=== PATIENT | female | born 1980 | race African-American/Black ===

== ENCOUNTER → 2016-09-03 | Emergency (ER) | payer OTHER ==
[~2016-09-03] VITALS: Ht 160 cm; Wt 86.2 kg
[~2016-09-03] MED LIST: DIFLUCAN150 MG PO; Fluconazole 100mg tab ORAL ONE
[2016-09-03 14:10] LABS: APPEARANCE,URINE CLEAR; KETONES,URINE NEGATIVE (NEGATIVE); LEUKOCYTE ESTERASE ,URINE NEGATIVE (NEGATIVE); NITRITE,URINE NEGATIVE (NEGATIVE); PH,URINE 5 (4.5-8.0); PROTEIN,URINE NEGATIVE (NEGATIVE); UROBILINOGEN,URINE NORMAL MG/DL (0.0-1.0)
--- NOTE | 2016-09-03 15:09 | Emergency Room Report ---
History of Present Illness General Chief Complaint: Female Urogenital Problems Source: Patient Present Illness HPI 36-year-old female presents emergency department complaining of vaginal itching and labial swelling x1 week. Patient states symptoms onset were after taking oral penicillin for dental procedure. Patient states she attempted to use Monistat cream but she continues to have symptoms. Patient denies recent unprotected intercourse denies history of STDs, denies . Patient denies tender palpable lymph nodes, vaginal lesions, nausea, vomiting, fevers, chills. She denies rashes elsewhere on the body denies abdominal pain. Denies CP, Palpitations, LOC, AMS, dizziness, Changes in Vision, Sensation, paresthesias, or a sudden severe headache. Allergies: Coded Allergies: No Known Allergies (Unverified , 09/03/16) Patient History Past Medical History: see triage record Past Surgical History: none Pertinent Family History: none Last Menstrual Period: 08/09 Now: No : 3 Para: 0 Reviewed Nursing Documentation: PMH: Agreed, PSxH: Agreed Nursing Documentation-PMH Past Medical History: No Stated History Review of Systems All Other Systems: negative except mentioned in HPI Physical Exam Vital Signs Date Time Temp Pulse Resp B/P Pulse Ox O2 Delivery O2 Flow Rate FiO2 09/03/16 13:19 98.1 62 18 164/96 99 Room Air Sp02 EP Interpretation: reviewed, normal General Appearance: no apparent distress, alert, GCS 15, non-toxic Head: normocephalic, atraumatic Eyes: bilateral eye PERRL, bilateral eye normal inspection ENT: hearing grossly normal, normal pharynx, no angioedema, normal voice Neck: full range of motion, supple/symm/no masses Respiratory: lungs clear, normal breath sounds, speaking full sentences Cardiovascular #1: regular rate, rhythm, no edema Gastrointestinal: normal bowel sounds, non tender, soft, no guarding, no rebound Rectal: deferred Genitourinary: normal inspection, no CVA tenderness, cervix normal, other - No CMT, white d/c noted in vaginal vault. external labia are swollen, irritated, and erythematous bilaterally, no lad, no lesions or vessicles. Musculoskeletal: back normal, gait/station normal, normal range of motion, non- tender Neurologic: alert, oriented x3, responsive, motor strength/tone normal, sensory intact, speech normal Psychiatric: judgement/insight normal, memory normal, mood/affect normal Skin: normal color, warm/dry, well hydrated, rash - external labia are swollen , irritated, and erythematous bilaterally, no lad, no lesions or vessicles. Lymphatic: no adenopathy Medical Decision Making PA Attestation Dr. Centeno is my supervising Physician whom patient management has been discussed with. Diagnostic Impression: Primary Impression: Vaginitis and vulvovaginitis ER Course 36-year-old female presents emergency department complaining of vaginal itching and labial swelling x1 week. Patient states symptoms onset were after taking oral penicillin for dental procedure. Patient states she attempted to use Monistat cream but she continues to have symptoms. Patient denies recent unprotected intercourse denies history of STDs, denies . Patient denies tender palpable lymph nodes, vaginal lesions, nausea, vomiting, fevers, chills. She denies rashes elsewhere on the body denies abdominal pain. Denies CP, Palpitations, LOC, AMS, dizziness, Changes in Vision, Sensation, paresthesias, or a sudden severe headache. Ddx considered but are not limited to UTi , Pyelo, STI, Stone, Cystitis, vaginal laceration, vaginitis, BV,Bartholin gland abscess/cyst . Vital signs: are WNL, pt. is afebrile H& PE are most consistent with: vaginitis, will do wet mount to exclude BV. ORDERS: - UA labs are attached : no evidence of UTI - Vaginal Wet Mount: few epithelial cells, no trich, yeast, clue cells, moderate bacteria. will treat pt. clinically for yeast vaginitis due to symptoms, and recent abx use ED INTERVENTIONS: -Diflucan PO DISCHARGE: At this time pt. is stable for d/c to home. Will provide printed patient care instructions, and any necessary prescriptions. Care plan and follow up instructions have been discussed with the patient prior to discharge. Labs Test 09/03/16 14:00 Urine Color Pale yellow Urine Appearance Clear Urine pH 5 (4.5-8.0) Urine Specific [place] 1.010 (1.005-1.035) Urine Protein Negative (NEGATIVE) Urine Glucose (UA) Negative (NEGATIVE) Urine Ketones Negative (NEGATIVE) Urine Occult Blood Negative (NEGATIVE) Urine Nitrite Negative (NEGATIVE) Urine Bilirubin Negative (NEGATIVE) Urine Urobilinogen Normal MG/DL (0.0-1.0) Urine Leukocyte Esterase Negative (NEGATIVE) Last Vital Signs Date Time Temp Pulse Resp B/P Pulse Ox O2 Delivery O2 Flow Rate FiO2 09/03/16 13:19 98.1 62 18 164/96 99 Room Air Disposition: HOME, SELF-CARE Condition: Stable Scripts Fluconazole (DIFLUCAN) 150 Mg Tablet 150 MG PO DAILY for 3 Days, #3 TAB Prov: Lluvia Moscoso 09/03/16 Referrals: [facility],REFERRING (PCP) Patient Instructions: Vaginitis, Vaginal Yeast Infection, Adult Additional Instructions: Take medications as directed. Follow up with PCP in 3-5 days Return sooner to ED if new symptoms occur, or current symptoms become worse. - Please note that this Emergency Department Report was dictated using [employer] installer technology software, occasionally this can lead to erroneous entry secondary to interpretation by the dictation equipment. Lluvia Moscoso Sep 03, 2016 15:09
[2016-09-03 15:43] VITALS: BP 164/96
== END | disposition home or self-care (01) ==
LOC: EMR 13:35
DX: N76.0 Acute vaginitis (principal)
CPT/HCPCS: 58999; 81003; 87210

== ENCOUNTER 2017-05-08 21:57 | Emergency (ER) | payer OTHER ==
[~2017-05-08] VITALS: Ht 160 cm; Wt 80.7 kg
[~2017-05-08 21:57] MED LIST changes: -Fluconazole 100mg tab ORAL ONE
[2017-05-08] MEDS ORDERED: NKM (22:04)
[2017-05-08 22:30] LABS: APPEARANCE,URINE SLIGHTLY CLOUDY; BILIRUBIN, URINE NEGATIVE (NEGATIVE); COLOR,URINE YELLOW; GLUCOSE, URINE (UA) NEGATIVE (NEGATIVE); KETONES,URINE NEGATIVE (NEGATIVE); LEUKOCYTE ESTERASE ,URINE 1+ (NEGATIVE); NITRITE,URINE NEGATIVE (NEGATIVE); PH,URINE 6.5 (4.5-8.0); PROTEIN,URINE 2+ (NEGATIVE); UROBILINOGEN,URINE 1 MG/DL (0.0-1.0)
[2017-05-08] MEDS ORDERED: DIFLUCAN150 MG PO (22:52)
[2017-05-08] MEDS ORDERED: KEFLEX500 MG ORAL (22:52)
[2017-05-08 23:00] VITALS: BP 176/100
[2017-05-08] MEDS ORDERED: HYDROCHLOROTH12.5 MG ORAL (23:37)
--- NOTE | 2017-05-09 00:31 | Emergency Room Report ---
History of Present Illness General Chief Complaint: Vaginal Source: Patient Present Illness HPI 37-year-old female presents ED for evaluation. Patient presenting with vaginal itching times one day. Denies dysuria. Denies any pain. Denies any discharge. States she had similar presentation in the past and was prescribed Diflucan for yeast infection. Denies flank pain. Denies nausea or vomiting. No other aggravating or relieving factors. Denies any other associated symptoms Allergies: Coded Allergies: No Known Allergies (Unverified , 09/03/16) Patient History Past Medical History: none Past Surgical History: none Pertinent Family History: none Social History: Denies: smoking, alcohol use, drug use Last Menstrual Period: Apr Now: No Immunizations: UTD Reviewed Nursing Documentation: PMH: Agreed, PSxH: Agreed Nursing Documentation-PMH Past Medical History: No Stated History Review of Systems All Other Systems: negative except mentioned in HPI Physical Exam Vital Signs Date Time Temp Pulse Resp B/P (MAP) Pulse Ox O2 Delivery O2 Flow Rate FiO2 05/08/17 21:58 98.6 61 16 174/79 100 Room Air 98.6 Sp02 EP Interpretation: reviewed, normal General Appearance: no apparent distress, alert, GCS 15, non-toxic Head: normocephalic, atraumatic Eyes: bilateral eye normal inspection, bilateral eye PERRL ENT: hearing grossly normal, normal pharynx, no angioedema, normal voice Neck: full range of motion, supple/symm/no masses Respiratory: chest non-tender, lungs clear, normal breath sounds, speaking full sentences Cardiovascular #1: regular rate, rhythm, no edema Cardiovascular #2: 2+ carotid (R), 2+ carotid (L), 2+ radial (R), 2+ radial (L) , 2+ dorsalis pedis (R), 2+ dorsalis pedis (L) Gastrointestinal: normal bowel sounds, non tender, soft, non-distended, no guarding, no rebound Rectal: deferred Genitourinary: normal inspection, no CVA tenderness Musculoskeletal: back normal, gait/station normal, normal range of motion, non- tender Neurologic: alert, oriented x3, responsive, motor strength/tone normal, sensory intact, speech normal Psychiatric: judgement/insight normal, memory normal, mood/affect normal, no suicidal/homicidal ideation Reflexes: 3+ bicep (R), 3+ bicep (L), 3+ tricep (R), 3+ tricep (L), 3+ knee (R) , 3+ knee (L) Skin: normal color, no rash, warm/dry, well hydrated Lymphatic: no adenopathy Medical Decision Making Diagnostic Impression: Primary Impression: UTI (urinary tract infection) Qualified Codes: N39.0 - Urinary tract infection, site not specified Additional Impressions: Yeast infection Hypertension Qualified Codes: I10 - Essential (primary) hypertension ER Course Hospital Course 37-year-old female presents ED with dysuria, vaginal itching Differential diagnoses include: UTI, cystitis, pyelonephritis Clinical course Patient placed on stretcher. After initial history and physical I ordered UA, urine . UA + bacteria. We will treat for UTI and yeast infection On reassessment blood pressure noted to be high. Denies any chest pain or shortness of breath. Denies any dizziness or headache. Patient was seen here in August for similar presentation of vaginal itching. At that time her blood pressure was also elevated. I discussed the findings with the patient. Asymptomatic hypertension. I will prescribe her a low-dose of hydrochlorothiazide but recommend close follow-up with PMD Diagnosis - UTI, yeast infection, hypertension Stable and discharged home with prescriptions for Rx Keflex, Diflucan, HCTZ. Instructed to followup with PMD. Return to ED if symptoms recur or worsen Labs Test 05/08/17 22:10 Urine Color Yellow Urine Appearance Slightly cloudy Urine pH 6.5 (4.5-8.0) Urine Specific [place] 1.015 (1.005-1.035) Urine Protein 2+ (NEGATIVE) Urine Glucose (UA) Negative (NEGATIVE) Urine Ketones Negative (NEGATIVE) Urine Occult Blood Negative (NEGATIVE) Urine Nitrite Negative (NEGATIVE) Urine Bilirubin Negative (NEGATIVE) Urine Urobilinogen 1 MG/DL (0.0-1.0) Urine Leukocyte Esterase 1+ (NEGATIVE) Urine RBC 0-2 /HPF (0 - 2) Urine WBC 2-4 /HPF (0 - 2) Urine Squamous Epithelial Cells Moderate /LPF (NONE/OCC) Urine Bacteria Moderate /HPF (NONE) Urine HCG, Qualitative Negative Last Vital Signs Date Time Temp Pulse Resp B/P (MAP) Pulse Ox O2 Delivery O2 Flow Rate FiO2 05/08/17 21:58 98.6 61 16 174/79 100 Room Air 98.6 Status: improved Disposition: HOME, SELF-CARE Condition: Stable Scripts Hydrochlorothiazide* (HYDROCHLOROTHIAZIDE*) 12.5 Mg Tablet 12.5 MG ORAL DAILY, #14 TAB Prov: POONAM HOLMAN M.D. 05/08/17 Cephalexin* (KEFLEX*) 500 Mg Capsule 500 MG ORAL Q6H, #28 CAP 0 Refills Prov: POONAM HOLMAN M.D. 05/08/17 Fluconazole (DIFLUCAN) 150 Mg Tablet 150 MG PO DAILY, #3 TAB Prov: POONAM HOLMAN M.D. 05/08/17 Patient Instructions: Dysuria POONAM HOLMAN M.D. May 09, 2017 00:31
== END 2017-05-08 23:00 | disposition home or self-care (01) ==
LOC: EMR 22:27
DX: N39.0 Urinary tract infection, site not specified (principal); B37.9 Candidiasis, unspecified; I10 Essential (primary) hypertension
CPT/HCPCS: 81003; 81025; 87086; 87181; 99284

== ENCOUNTER 2018-03-24 17:49 | Emergency (ER) | payer OTHER ==
[~2018-03-24] VITALS: Ht 160 cm; Wt 77.1 kg
[~2018-03-24 17:49] MED LIST changes: +HYDROCHLOROTH12.5 MG ORAL; +KEFLEX500 MG ORAL; +NKM
--- NOTE | 2018-03-24 19:40 | NUR ---
ED Nurse Note: Pt walked in ED c/o left side pain, pt states she tripped over something yesterday and fell on her face and has been hurting since, pt denies loc. pt aa&ox4, gcs=15, skin warm and dry, resp even and unlabored, no obvious deformity, contusion or skin tear noted, will cont monitor. CMs intact BUE/BLE
[2018-03-24 19:44] VITALS: BP 159/62
[2018-03-24] MEDS ORDERED: Tylenol #3 tab (300mg/30mg) ORAL ONE (19:45)
--- NOTE | 2018-03-24 19:45 | NUR ---
ED Nurse Note: pt off to xray
[2018-03-24] MEDS ORDERED: Bacitracin Oint UD TOPIC ONE (21:00)
--- NOTE | 2018-03-24 21:00 | Emergency Room Report ---
History of Present Illness General Chief Complaint: Pain Source: Patient (Lluvia Moscoso) Present Illness HPI 38-year-old female presents to the emergency department complaining of 8 out of 10 in severity pain to the left knuckles, left wrist, left elbow and left shoulder with some radiation up the left side of the neck in the muscular area. Status post mechanical trip and fall last night. Patient reports that she tripped on some uneven concrete and had a fall on an outstretched hand. Patient denies snuff box tenderness. Patient denies hitting her head or having a loss of consciousness. Patient denies midline neck or back pain. Patient denies nausea, vomiting or limitations, chest pain, weakness, paresthesias or inability to move any of the affected areas. Patient reports multiple abrasions she states she is up-to-date with tetanus vaccination denies bleeding at this time. Patient states she has not taken any medication for her symptoms she denies past medical history. She reports pain is exacerbated upon palpation and movement especially bending at the left elbow. Patient reports some mild relief with rest however she continues to feel pain even with rest. (Lluvia Moscoso) Allergies: Coded Allergies: No Known Allergies (Unverified , 09/03/16) Patient History Past Medical History: see triage record Past Surgical History: none Pertinent Family History: none Last Menstrual Period: 03/24/18 Now: No Immunizations: UTD Reviewed Nursing Documentation: PMH: Agreed; PSxH: Agreed (Lluvia Moscoso) Nursing Documentation-PMH Past Medical History: No Stated History (Lluvia Moscoso) Review of Systems All Other Systems: negative except mentioned in HPI (Lluvia Moscoso) Physical Exam Vital Signs Date Time Temp Pulse Resp B/P (MAP) Pulse Ox O2 Delivery O2 Flow Rate FiO2 03/24/18 17:54 97.9 58 15 159/62 99 Room Air Sp02 EP Interpretation: reviewed, normal General Appearance: no apparent distress, alert, GCS 15, non-toxic Head: normocephalic, atraumatic Eyes: bilateral eye normal inspection, bilateral eye PERRL ENT: hearing grossly normal, normal voice Neck: full range of motion, tender lateral - left lateral musculature no midline bony/spinous process ttp. FROM Respiratory: lungs clear, normal breath sounds, speaking full sentences Cardiovascular #1: regular rate, rhythm, normal capillary refill Cardiovascular #2: 2+ femoral (L) Musculoskeletal: back normal, gait/station normal, normal range of motion, tender - Left 3rd and 4th knuckles, left wrist, no snuff box, lateral left elbow , and lateral/ caudal left shoulder. pain with ROM of the wrist, elbow and shoulder, equal tailercpa strength, lateral elbow bruising, abrasions over the knuckles and lateral left elbow. no obvious deformity. Neurologic: alert, oriented x3, responsive, motor strength/tone normal, sensory intact, normal gait, speech normal, grossly normal Psychiatric: judgement/insight normal Skin: normal color, no rash, warm/dry, well hydrated, abrasions - dorsal 3rd and 4th left knuckles, and lateral left elbow, superficial , not bleeding, no evidence of fb or infection. (Lluvia Moscoso) Medical Decision Making PA Attestation Dr. Begum is my supervising Physician whom patient management has been discussed with. (Lluvia Moscoso) Diagnostic Impression: Primary Impression: Multiple contusions Additional Impressions: Abrasions of multiple sites Left shoulder strain Qualified Codes: S46.912A - Strain of unspecified muscle, fascia and tendon at shoulder and upper arm level, left arm, initial encounter Muscle strain ER Course 38-year-old female presents to the emergency department complaining of 8 out of 10 in severity pain to the left knuckles, left wrist, left elbow and left shoulder with some radiation up the left side of the neck in the muscular area. Status post mechanical trip and fall last night. Patient reports that she tripped on some uneven concrete and had a fall on an outstretched hand. Patient denies snuff box tenderness. Patient denies hitting her head or having a loss of consciousness. Patient denies midline neck or back pain. Patient denies nausea, vomiting or limitations, chest pain, weakness, paresthesias or inability to move any of the affected areas. Patient reports multiple abrasions she states she is up-to-date with tetanus vaccination denies bleeding at this time. Patient states she has not taken any medication for her symptoms she denies past medical history. She reports pain is exacerbated upon palpation and movement especially bending at the left elbow. Patient reports some mild relief with rest however she continues to feel pain even with rest. Ddx considered but are not limited to Fracture, dislocation, contusion, Sprain/ Strain/Spasm, abrasions, muscle strain just to name a few. Vital signs: are WNL, pt. is afebrile H&PE are most consistent with musculoskeletal injury will perform imaging to r/ o fractures/dislocations. ORDERS: - X-ray's : Left hand, wrist, elbow, shoulder - negative for fx, Dislocation , or significant soft tissue injury, per preliminary read in ED, and signed by ELISHA Moscoso, my supervising physician has reviewed, and agrees with my interpretation. ED INTERVENTIONS: - Coolin PO -Bacitracin - applied after wound care. -- Left arm Sling applied by sterilization tech. Pt. remains neurovascularly intact. DISCHARGE: At this time pt. is stable for d/c to home. Will provide printed patient care instructions, and any necessary prescriptions. Care plan and follow up instructions have been discussed with the patient prior to discharge. (Lluvia Moscoso) ER Course Add Note: I was called by Massimo Solis in radiology about a hand x-ray that was obtained during this visit. There is an area of widening at the scapholunate articulation. This could be a possible scapholunate dissociation. I was able to contact the patient by phone. The patient states she does still have a lot of hand pain. I instructed the patient to return to the emergency department for thumb spica splinting and referral to orthopedics for further evaluation and assessment and monitoring that she will need for possible scapholunate dissociation. The patient indicated that she would return this evening. (Niya Velázquez DO) Other X-Ray Diagnostic Results Other X-Ray Diagnostic Results #1: X-Ray ordered: Left wrist # of Views/Limited Vs Complete: 2 View Indication: Pain EP Interpretation: Yes PA Xray: Interpretation reviewed, by supervising MD, and agrees with findings. Interpretation: no dislocation, no soft tissue swelling, no fractures Impression: No acute disease Electronically Signed by: Lluvia Moscoso PA-C Other X-Ray Diagnostic Results #2: X-Ray ordered: Left Elbow # of Views/Limited Vs Complete: 2 View Indication: Pain EP Interpretation: Yes PA Xray: Interpretation reviewed, by supervising MD, and agrees with findings. Interpretation: no dislocation, no soft tissue swelling, no fractures Impression: No acute disease Electronically Signed by: Lluvia Moscoso PA-C Other X-Ray Diagnostic Results #3: X-Ray ordered: Left Shoulder # of Views/Limited Vs Complete: 3 View Indication: Pain EP Interpretation: Yes ELISHA Xray: Interpretation reviewed, by supervising MD, and agrees with findings. Interpretation: no dislocation, no soft tissue swelling, no fractures Impression: No acute disease Electronically Signed by: Lluvia Moscoso PA-C Other X-Ray Diagnostic Results #4: X-Ray ordered: Left Hand # of Views/Limited Vs Complete: 3 View Indication: Pain EP Interpretation: Yes ELISHA Xray: Interpretation reviewed, by supervising MD, and agrees with findings. Interpretation: no dislocation, no soft tissue swelling, no fractures Impression: No acute disease Electronically Signed by: Lluvia Moscoso PA-C (Lluvia Moscoso) Last Vital Signs Date Time Temp Pulse Resp B/P (MAP) Pulse Ox O2 Delivery O2 Flow Rate FiO2 03/24/18 19:44 97.9 60 15 159/62 99 Room Air (Lluvia Moscoso) Disposition: HOME, SELF-CARE Condition: Stable Scripts Methocarbamol* (ROBAXIN-750*) 750 Mg Tablet 750 MG PO QID, #28 TAB 0 Refills Prov: Lluvia Moscoso 03/24/18 Ibuprofen* (MOTRIN*) 600 Mg Tablet 600 MG ORAL THREE TIMES A DAY, #30 TAB 0 Refills Prov: Lluvia Moscoso 03/24/18 Bacitracin/Polymyxin B Sulfate (BACITRACIN-POLYMYXIN OINTMENT) 28.35 Gm Oint...g. 1 APPLIC TP BID, #28.3 GM Prov: Lluvia Moscoso 03/24/18 Referrals: NON PHYSICIAN (PCP) Additional Instructions: Take medications as directed. Follow up with a Primary Care Provider in 3-5 days, even if your symptoms have resolved. --Please review list of primary care clinics, if you do not already have a primary care provider Return sooner to ED if new symptoms occur, or current symptoms become worse. Do not drink alcohol, drive, or operate heavy machinery while taking Robaxin ( Muscle Relaxers) as this may cause drowsiness. - Please note that this Emergency Department Report was dictated using [employer] sample maker technology software, occasionally this can lead to erroneous entry secondary to interpretation by the dictation equipment. Lluvia Moscoso Mar 24, 2018 21:00 Niya Velázquez DO Mar 25, 2018 11:01
[2018-03-24] MEDS ORDERED: BACITRACIN-P28.35 GM TP (21:01)
[2018-03-24] MEDS ORDERED: ROBAXIN-750750 MG PO (21:01)
[2018-03-24] MEDS ORDERED: IBUPROFEN600 MG ORAL (21:01)
--- NOTE | 2018-03-24 21:06 | NUR ---
ED Nurse Note: addendum, noted small abrasion on left hand no drainage and small contusion on elbow area.
[2018-03-24 21:16] VITALS: BP 116/89
--- NOTE | 2018-03-24 21:18 | NUR ---
ED Nurse Note: wound care done and sling applied by instrument technician, pt discharge instruction provided w/ prescription, pt education done via discussion and hand out, wristband removed, pt advised to follow up with pcp or return to ed if s/s worsen or new s/s develop, pt verbalized understanding and agrees with plan.
--- NOTE | 2018-03-25 10:50 | Diagnostic Imaging Report ---
Indications:Pain, status post fall Technique: Three or 4 views of the left elbow Comparison: None Findings: No acute fractures. No dislocations. The joint spaces are preserved. Impression: Negative
--- NOTE | 2018-03-25 10:56 | Diagnostic Imaging Report ---
Clinical Indication:Left wrist pain, status post fall Technique: 2 views of the left wrist Comparison: None Findings: Exam is limited due to the availability of only 2 views. No acute fractures. No dislocations. There is equivocal slight widening of the scapholunate distance. Impression: No definite acute bony trauma Equivocal slight widening of the scapholunate distance, if real could indicate trauma to the scapholunate ligament. Correlate with clinical findings Findings discussed by phone with Dr. Farrell at the time of interpretation
--- NOTE | 2018-03-25 10:58 | Diagnostic Imaging Report ---
Indication: Hand pain, status post fall Technique: 3 views left hand Comparison: none Findings: No acute fractures. No dislocations. There is equivocal very slight widening of the scapholunate distance. The remaining joint spaces are preserved. Impression: No acute bony trauma Equivocal slight widening of the scapholunate distance, if real could indicate injury to the scapholunate ligament. Correlate with clinical findings
--- NOTE | 2018-03-25 10:59 | Diagnostic Imaging Report ---
Indication: Left shoulder pain, status post fall Technique: 3 views of the left shoulder Comparison: none Findings: There is an osteophyte or old healed fracture deformity involving the inferior glenoid. No acute fractures. No dislocations. The joint spaces are preserved Impression: No acute process
== END 2018-03-24 21:15 | disposition home or self-care (01) ==
LOC: EMR 19:52
DX: S60.212A Contusion of left wrist, initial encounter (principal); S50.02XA Contusion of left elbow, initial encounter; S40.012A Contusion of left shoulder, initial encounter; S60.00XA Contusion of unspecified finger without damage to nail, initial encounter; S60.413A Abrasion of left middle finger, initial encounter; S60.415A Abrasion of left ring finger, initial encounter; S50.312A Abrasion of left elbow, initial encounter; S46.912A Strain of unspecified muscle, fascia and tendon at shoulder and upper arm level, left arm, initial encounter; W01.0XXA Fall on same level from slipping, tripping and stumbling without subsequent striking against object, initial encounter; Y92.89 Other specified places as the place of occurrence of the external cause
CPT/HCPCS: 99284

== ENCOUNTER 2018-03-25 19:18 | Emergency (ER) | payer OTHER ==
[~2018-03-25] VITALS: Ht 162.6 cm; Wt 77.1 kg
[~2018-03-25 19:18] MED LIST changes: +BACITRACIN-P28.35 GM TP; +IBUPROFEN600 MG ORAL; +ROBAXIN-750750 MG PO
[2018-03-25 20:00] VITALS: BP 187/90
--- NOTE | 2018-03-25 20:00 | NUR ---
ED Nurse Note: Pt fall 2 days ago and was in ER yesterday, and got the call states she needs the splint on her L hand. Pain level 7/10. hazel jefferson on bedside talking with pt with the plan of care. will continue to monitor.
--- NOTE | 2018-03-25 20:14 | Emergency Room Report ---
History of Present Illness General Chief Complaint: General Complaint Source: Patient Present Illness HPI 38-year-old female patient presents the ER for evaluation of left wrist pain. Patient was seen in the ER yesterday after mechanical trip and fall for similar symptoms. States she was contacted today by physician business continuity strategy director and told to return to the ER to have her wrist placed into a thumb spica splint. States she was informed of possible scapholunate dissociation. Reports pain in her left wrist. Reports she is right-hand dominant. Reports pain with movement. Denies other aggravating or relieving factors. Allergies: Coded Allergies: No Known Allergies (Unverified , 09/03/16) Patient History Past Medical History: see triage record Last Menstrual Period: now Now: No Reviewed Nursing Documentation: PMH: Agreed; PSxH: Agreed Review of Systems All Other Systems: negative except mentioned in HPI Physical Exam Vital Signs Date Time Temp Pulse Resp B/P (MAP) Pulse Ox O2 Delivery O2 Flow Rate FiO2 03/25/18 19:26 97.9 64 19 187/90 99 Room Air Sp02 EP Interpretation: reviewed, normal General Appearance: well appearing, no apparent distress, alert, GCS 15, non- toxic Head: normocephalic, atraumatic Eyes: bilateral eye normal inspection, bilateral eye PERRL ENT: hearing grossly normal, normal pharynx, no angioedema, normal voice, uvula midline, moist mucus membranes Neck: full range of motion Respiratory: lungs clear, normal breath sounds, no rhonchi, no respiratory distress, no accessory muscle use, no wheezing, speaking full sentences Cardiovascular #1: regular rate, rhythm, no edema Cardiovascular #2: 2+ radial (R), 2+ radial (L) Musculoskeletal: back normal, digits/nails normal, gait/station normal, non- tender, decreased range of motion - Secondary to pain, other - Left snuffbox tenderness, cap refill less than 2 seconds, no deformity Psychiatric: mood/affect normal Skin: no rash Medical Decision Making PA Attestation Dr. Begum is my supervising Physician whom patient management has been discussed with. Diagnostic Impression: Primary Impression: Scapho-lunate dissociation ER Course Pt. presents to the ED for repeat exam and splinting for left wrist. Ddx considered but are not limited to fracture, sprain, strain, contusion, dislocation. No erythema, no warmth to touch, no fever, nontoxic appearing, low suspicion for septic joint. Soft compartments, no pulselessness, no pallor, no paresthesias, low suspicion for compartment syndrome at this time. Vital signs: are WNL, pt. is afebrile ER COURSE Reviewed previous chart notes. X-rays results states slight widening of the scaphoid lunate distance indicating possible trauma to the scapholunate ligament. Patient had been contacted by Dr. Velázquez was told to return to the ER for thumb spica splinting. Likely scapholunate disassociation results discussed with patient. Thumb spica splint was applied to the left wrist and was checked afterwards by me showing good alignment and support with distal neurovascular functioning intact. Patient instructed on RICE method: rest, ice, compression, elevation. Patient instructed on rest, ice and heat. Patient instructed to be NWB Contact information for orthopedic urgent care provided, follow-up with urgent care if unable to followup with primary care provider and get referral to orthopedics pediatric physician. Followup with primary care provider. Discuss referral to ortho/pain management/ PT as needed. Discuss further imaging with MRI/CT as needed. Follow-up with orthopedic urgent care. Call to schedule appointment 1-2 days. Continue take medications as previously instructed. DISCHARGE: At this time pt. is stable for d/c to home. Patient is resting comfortably, in no acute distress, nontoxic appearing, talking without difficulty. Will provide printed patient care instructions, and any necessary prescriptions. Patient instructed to follow with primary care provider in 3 - 5 days and to request further follow-up as needed. Care plan and follow up instructions have been discussed with the patient prior to discharge. Take medications as directed. Patient questions asked and answered. Patient reports understanding and agreement to treatment plan. ER precautions given, patient instructed to return to ER immediately for any new or worsening of symptoms. - Please note that this Emergency Department Report was dictated using [employer] technology software, occasionally this can lead to erroneous entry secondary to interpretation by the dictation equipment. Last Vital Signs Date Time Temp Pulse Resp B/P (MAP) Pulse Ox O2 Delivery O2 Flow Rate FiO2 03/25/18 19:26 97.9 64 19 187/90 99 Room Air Status: improved Disposition: HOME, SELF-CARE Condition: Stable Patient Instructions: Scaphoid Fracture, Wrist Additional Instructions: Patient instructed to follow up with primary care provider and discuss further referral to orthopedics/physical therapy/pain management as needed. If unable to followup with PCP, followup with orthopedic urgent care in 5-7 days , call to schedule appointment. Patient instructed on RICE method: rest, ice, compression, elevation. Patient instructed to NWB Take medications as directed. Patient questions asked and answered. ER precautions given, patient instructed to return to ER immediately for any new or worsening of symptoms. [facility] [address] [address] [facility], [address] [email or web address] Rm Krueger Mar 25, 2018 20:14
[2018-03-25 20:24] VITALS: BP 187/90
--- NOTE | 2018-03-25 20:24 | NUR ---
ED Nurse Note: Patient is being discharged from ED alert and oriented x4, ambulatory with a steady gait, VSS. Patient acknowledged the need to follow up with a PMD, Patient was advised to return if symptoms worsen. prescription in hand, ID band removed. pt left the ed with all the belongings.
== END 2018-03-25 20:24 | disposition home or self-care (01) ==
LOC: EMR 20:01
DX: S63.095A Other dislocation of left wrist and hand, initial encounter (principal); W01.0XXA Fall on same level from slipping, tripping and stumbling without subsequent striking against object, initial encounter; Y92.89 Other specified places as the place of occurrence of the external cause
CPT/HCPCS: 29125; 99283